=== PATIENT | male | born 1995 | race Caucasian/White ===

== ENCOUNTER 2025-02-13 09:28 | Inpatient (IN) | payer OTHER ==
[~2025-02-13] VITALS: Ht 180.3 cm; Wt 89.0 kg
[2025-02-13 10:08] LABS: BASOPHILS % (AUTO) 0.7 % (0.0-2.0); EOSINOPHILS % (AUTO) 0.7 % (1.0-6.0); HEMATOCRIT 41.5 % (41-53); HEMOGLOBIN 14.2 g/dL (13.5-17.5); LYMPHOCYTES % (AUTO) 24.7 % (22.0-44.0); MEAN CORPUSCULAR HEMOGLOBIN 29.6 pg (26.0-34.0); MEAN CORPUSCULAR HGB CONC 34.2 G/dL (31.0-37.0); MEAN CORPUSCULAR VOLUME 87 fL (80-100); MONOCYTES # (AUTO) 0.6 K/uL (0.1-1.0); MONOCYTES % (AUTO) 7.8 % (2.0-9.0); NEUTROPHILS # (AUTO) 5.5 K/uL (1.8-7.7); NEUTROPHILS % (AUTO) 66.1 % (40.0-70.0); PLATELET COUNT (AUTO) 296 K/uL (150-450); RED CELL DISTRIBUTION WIDTH 14.2 % (11.5-14.5); WHITE BLOOD COUNT (AUTO) 8.3 K/uL (4.5-11.0)
[2025-02-13] MEDS ORDERED: IOHEXOL 350 MG/ML 100 ML VIAL ONE (10:18)
[2025-02-13] MEDS ORDERED: SODIUM CHLORIDE 0.9% 100 ML ONE (10:18)
[2025-02-13 10:19] LABS: ANION GAP 9 mmol/L (8-16); CALCIUM, TOTAL 9.1 mg/dL (8.8-10.5); CARBON DIOXIDE 27 mmol/L (22-29); CHLORIDE 105 mmol/L (98-107); CREATININE 1.12 mg/dL (0.60-1.30); GLOMERULAR FILTR. RATE CALC > 60 mL/min (>60); GLUCOSE,RANDOM 96 mg/dL (70-110); POTASSIUM 3.6 mmol/L (3.5-5.1); SODIUM SERUM 141 mmol/L (136-145); UREA NITROGEN, BLOOD 12 mg/dL (7-18)
[2025-02-13 10:23] LABS: ALBUMIN 3.7 g/dL (3.4-5.0); BILIRUBIN,DIRECT 0.2 mg/dL (0.00-0.20); BILIRUBIN,TOTAL 0.8 mg/dL (0.1-1.0); TOTAL PROTEIN, SERUM 7.5 g/dL (6.4-8.2)
[2025-02-13 10:28] LABS: TROPONIN I-HIGH SENSITIVITY 5 ng/L (<76)
[2025-02-13] MEDS: ONDANSETRON HCL 4 MG/2 ML VIAL IVP ONE (10:37)
[2025-02-13] MEDS: MORPHINE SULFATE 2 MG/ML SYRINGE IVP ONE ×2 (10:37→13:06)
[2025-02-13 13:28] LABS: APPEARANCE,URINE CLEAR (CLEAR); BILIRUBIN,URINE NEGATIVE (NEGATIVE); COLOR,URINE LIGHT YELLOW (YELLOW); GLUCOSE, URINE (UA) NEGATIVE (NEGATIVE); KETONES,URINE NEGATIVE (NEGATIVE); LEUKOCYTE ESTERASE ,URINE NEGATIVE (NEGATIVE); NITRATE,URINE NEGATIVE (NEGATIVE); OCCULT BLOOD,URINE NEGATIVE (NEGATIVE); PH,URINE 8.5 (5.0-8.0); PROTEIN,URINE NEGATIVE (NEGATIVE); SPECIFIC GRAVITIY, URINE 1.025 (1.003-1.030); UROBILINOGEN,URINE <=1.0 mg/dL (<=1.0)
[2025-02-13] MEDS ORDERED: MAGNESIUM HYDROXIDE SUSPENSION 30 ML UDCUP PO PRN (13:45)
[2025-02-13] MEDS ORDERED: ACETAMINOPHEN 325 MG TABLET PO PRN (13:45)
[2025-02-13] MEDS: OxyCODONE HCL/ACETAMINOPHEN 5-325 MG TABLET PO PRN ×2 (15:33→21:15)
[2025-02-13 20:56] VITALS: BP 104/71; PULSE 52; RESP 18; TEMP 97.9; O2SAT 98
[2025-02-13] MEDS: DOCUSATE SODIUM 100 MG CAPSULE PO SCH (21:15)
[2025-02-14] MEDS: FAMOTIDINE 20 MG TABLET PO SCH (07:36)
[2025-02-14 08:03] VITALS: BP 101/63; PULSE 60; RESP 18; TEMP 98.1; O2SAT 100
[2025-02-14] MEDS: KETOROLAC TROMETHAMINE 15 MG/ML VIAL IVP PRN (12:06)
[2025-02-14] MEDS: ONDANSETRON HCL 4 MG/2 ML VIAL IVP PRN (17:58)
[2025-02-14 19:37] VITALS: BP 104/79; PULSE 71; RESP 18; TEMP 99.1; O2SAT 99
[2025-02-14] MEDS: ZOLPIDEM TARTRATE 5 MG TABLET PO PRN (20:20)
[2025-02-15 07:25] VITALS: BP 110/73; PULSE 54; RESP 19; TEMP 98.1; O2SAT 97
[2025-02-15] MEDS ORDERED: ACET-2247 PO (10:22)
[2025-02-15] MEDS ORDERED: FAMO20 PO (10:22)
[2025-02-15] MEDS: ONDANSETRON 4 MG TABLET PO ONE (14:29)
== END 2025-02-15 16:00 | DRG 185 ==
LOC: EMS 09:35 → EDH 13:41 → 6N 20:33
PROVIDERS: ADMIT Internal Medicine; ATTEND Internal Medicine
DX: S22.42XA Multiple fractures of ribs, left side, initial encounter for closed fracture (principal); V89.2XXA Person injured in unspecified motor-vehicle accident, traffic, initial encounter; Y93.89 Activity, other specified; Y99.8 Other external cause status; Y92.488 Other paved roadways as the place of occurrence of the external cause
CPT/HCPCS: 71045; 71260; 72193; 74160; 80048; 80076; 81003; 82550; 83880; 84484; 85025; 93005; 96374; 96375; 96376; 99285; J1885; J2270; J2405; J7050; Q0162; 36415-L1; 36415-TC